=== PATIENT | female | born 2000 | race Caucasian/White ===

== ENCOUNTER 2022-07-09 01:55 | Emergency (ER) | payer MEDICAID ==
[~2022-07-09] VITALS: Ht 162.6 cm; Wt 50.3 kg
[2022-07-09 01:55] VITALS: BP 130/80
--- NOTE | 2022-07-09 02:10 | NUR ---
TO LOBBY FOLLOWING TRIAGE
[2022-07-09] MEDS ORDERED: NACL 0.9% 1,000 ML IV SCH (02:50)
[2022-07-09] MEDS ORDERED: ONDANSETRON 4 MG/2 ML VIAL IVP ONE (02:50)
--- NOTE | 2022-07-09 02:59 | NUR ---
PT TO BED #11
[2022-07-09 03:25] LABS: BASOPHILS % (AUTO) 0.3 % (0.0-2.0); EOSINOPHILS # (AUTO) 0.2 K/uL (0-0.4); EOSINOPHILS % (AUTO) 1.4 % (0.0-4.0); HEMATOCRIT 40.8 % (36-48); HEMOGLOBIN 13.7 g/dL (12.0-16.0); LYMPHOCYTES # (AUTO) 1.1 K/uL (2.5-16.5); LYMPHOCYTES % (AUTO) 7.8 % (20.5-51.1); MEAN CORPUSCULAR HEMOGLOBIN 30 pg (27-31); MEAN CORPUSCULAR HGB CONC 34 g/dL (33-37); MEAN CORPUSCULAR VOLUME 90.6 fL (80-94); MONOCYTES # (AUTO) 0.6 K/uL (0.8-1.0); MONOCYTES % (AUTO) 4.5 % (1.7-9.3); PLATELET COUNT (AUTO) 224 K/uL (140-450); RED CELL DISTRIBUTION WIDTH 13.1 % (11.6-13.7)
--- NOTE | 2022-07-09 03:35 | NUR ---
ASSUME CARE OF PT AT THIS TIME, PT C/O SEVERE ABD PAIN WITH VOMITING . PT HAD BILATERAL FLANK PAIN YESTERDAY. DENIES CP OR SOB. PT DENIES ANY PAIN OR FOUL SMELLING URINE. PT PLACED ON MERGERS AND ACQUISITIONS ASSOCIATE. HX- HYPERTHYROID
--- NOTE | 2022-07-09 03:45 | NUR ---
PT AT [facility] FOR METH USE, PT STATES SHE HAS BEEN SOBER X 3 MONTHS. PT AMBULATED TO RESTROOM WITH UPRIGTH STEADY GAIT.
[2022-07-09 04:01] LABS: ALBUMIN 4.2 g/dL (3.4-5.0); ANION GAP 16.5 (8-16); CARBON DIOXIDE 21.8 mmol/L (21-32); CREATININE 0.6 mg/dL (0.6-1.3); POTASSIUM 4.3 mmol/L (3.5-5.1); TOTAL BILIRUBIN 0.5 mg/dL (0.0-1.0)
--- NOTE | 2022-07-09 04:03 | NUR ---
PT TAKEN TO CT
--- NOTE | 2022-07-09 04:13 | NUR ---
PT RETURN FROM CT
--- NOTE | 2022-07-09 04:15 | NUR ---
PT STATES SHE HAS NO PAIN AT THIS TIME.
[2022-07-09] MEDS ORDERED: DEXT 5% /NACL 0.9% 1,000 ML IV ONE (04:20)
[2022-07-09] MEDS ORDERED: ONDA-188 SL ×2 (06:31→06:59)
[2022-07-09] MEDS ORDERED: METOCLOPRAMIDE 10 MG/2 ML INJ VIAL IVP ONE (06:35)
[2022-07-09] MEDS ORDERED: MORPHINE SULFATE 4 MG/ML SYR IVP ONE (06:35)
[2022-07-09] MEDS ORDERED: FAMOTIDINE 20 MG/2 ML VIAL IVP ONE (06:35)
--- NOTE | 2022-07-09 06:52 | NUR ---
Patient discharged with v/s stable. Written and verbal after care instructions given and explained. Patient alert, oriented and verbalized understanding of instructions. Ambulatory with steady gait. All questions addressed prior to discharge. ID band removed. Patient advised to follow up with PMD. Rx SENT TO PHARMACY. Patient educated on indication of medication including possible reaction and side effects. Opportunity to ask questions provided and answered.
[2022-07-09 06:53] VITALS: BP 120/65
[2022-07-09 13:36] LABS: APPEARANCE,URINE CLEAR (CLEAR); BILIRUBIN,URINE NEGATIVE (NEGATIVE); BLOOD, URINE NEGATIVE (NEGATIVE); COLOR,URINE YELLOW (YELLOW); LEUKOCYTE ESTERASE ,URINE 1+ (NEGATIVE); NITRITE, URINE NEGATIVE (NEGATIVE); UGLUCOSE NEGATIVE (NEGATIVE)
[2022-07-09 13:58] LABS: RBC,URINE 0-5 /HPF (0-5)
--- NOTE | 2022-07-14 14:51 | NUR ---
LATE ENTRY- IV DEXTROSE/NS DISCONTINUED AT 0652.
== END 2022-07-09 06:52 | disposition home or self-care (01) ==
LOC: MED 01:55
DX: R10.84 Generalized abdominal pain (principal); F17.200 Nicotine dependence, unspecified, uncomplicated; Z71.6 Tobacco abuse counseling
CPT/HCPCS: 36415; 74176; 80053; 81001; 81025; 83690; 85025; 87086; 96361; 96374; 96375; 99284; J2405; J2765; J3490